=== PATIENT | male | born 2000 | race African-American/Black ===

== ENCOUNTER 2022-08-25 21:29 | Emergency (ER) | payer MEDICAID, SELFPAY ==
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
[2022-08-25 21:36] VITALS: BP 117/79; PULSE 81; RESP 20; TEMP 36.2; O2SAT 97; BMI 24.4
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
[2022-08-25] MEDS: Amoxicillin/Potassium Clav 875 MG TABLET PO (23:06)
[2022-08-25] MEDS: oxyCODONE HCl Immed Release 5 MG TABLET 10 MG PO (23:15)
[2022-08-26 00:17] VITALS: BP 133/76; PULSE 68; RESP 18; O2SAT 98
--- NOTE | 2022-08-26 00:24 | PC.NURSE ---
report given to DESTINY Palmer at [facility]
== END 2022-08-26 00:23 | disposition short-term general hospital (02) ==
PROVIDERS: Emergency Provider Internal Medicine
DX: S02.32XA Fracture of orbital floor, left side, initial encounter for closed fracture (principal); S02.5XXA Fracture of tooth (traumatic), initial encounter for closed fracture; Y04.2XXA Assault by strike against or bumped into by another person, initial encounter; R04.0 Epistaxis; Y93.C2 Activity, hand held interactive electronic device; Y92.019 Unspecified place in single-family (private) house as the place of occurrence of the external cause; Y99.9 Unspecified external cause status
CPT/HCPCS: 70450; 70486; 72125; 99284; 99285